=== PATIENT | female | born 1940 | race Caucasian/White ===

== ENCOUNTER → 2016-10-18 | Outpatient (CLI) | payer OTHER ==
[~2016-10-18] MED LIST: ALBUTEROL17 GM INH; ALENDRONATE SOD70 MG PO; ATENOLOL PO; CALCIUM 500 + D1 TAB PO; CARDIZEM CD PO; CARTIA XT240 MG PO; FOSAMAX PO; IBUPROFEN PO; IBUPROFEN800 MG PO; LYSINE500 M1 PO; MACROBID100 M1 PO; NEXIUM PO; ROBITUSSIN100 MG/51 PO; SYNTHROID PO; VIT E PO; VITAMIN C; VITAMIN C500 M1 PO; VITAMIN D31000 UNI1 PO; ZYRTEC-D T1 TAB.SR . PO
--- NOTE | ~2016-10-18 | CT4 ---
[facility] A Service of [facility] & [facility] RADIOLOGY TEXT RESULTS PATIENT: NIKOLAY FIGUEREDO LOCATION: [facility] : 42 UNIT #: [id number] AGE: [address]: Noemi Cain APRN SEX: F ORDER DR: [id number] [facility] [address] [place], [place] [address] [id number] O MR#: [id number] #: [id number] NAME: NIKOLAY FIGUEREDO : 1940 SEX: F STUDY DATE/TIME: 10/18/2016 13:29 [facility]: STUDY DESCRIPTION: CT Abd and Pelv Wo Cont Attending Physician: Noemi Cain A.P.R.N. Referring Physician: Noemi Cain A.P.R.N. Ordering Physician: Noemi Cain A.P.R.N. Primary Care Physician: Noemi Cain A.P.R.N. MEDICAL IMAGING REPORT This report is preliminary unless electronic signature is present EXAM CT abdomen and pelvis without contrast INDICATIONS Bilateral flank pain, left greater than right since 10/16/2016. History of renal calculi. PROCEDURE Unenhanced CT of the abdomen and pelvis The CT exam was performed with one or more of the following radiation dose reduction techniques: automatic exposure control, adjustment of mA and/or kV according to patient size, and iterative reconstruction. COMPARISON 02/20/2016 FINDINGS Abdomen without contrast: Included lung bases are clear. Cardiomegaly. Liver, spleen, adrenal glands, pancreas, gallbladder show no acute abnormality. There is a small amount of sludge or small stones layering dependently in the gallbladder. No evidence for inflammation. Bowel loops are nondilated. There are multiple small bilateral nonobstructing renal calculi, largest on the left measuring approximately 5 mm. The ureters are difficult to follow but there is no definitive ureteral calculus. No hydronephrosis. 1.7 cm lesion in the right mid kidney is unchanged most in keeping with a benign proteinaceous or hemorrhagic cyst. There are a few other cysts in both kidneys. Pelvis without contrast: No radiodense bladder calculus. Previous hysterectomy. No aggressive appearing bone lesion. [facility]. [facility] A Service of [facility] & [facility] RADIOLOGY TEXT RESULTS PATIENT: NIKOLAY FIGUEREDO LOCATION: [facility] : 41 UNIT #: [id number] AGE: [address]: Noemi Cain ATTENUATOR SEX: F ORDER DR: IMPRESSION 1. No definite acute findings. 2. Bilateral nonobstructing renal calculi. Ureters are difficult to follow on this study but there is no definite radiodense ureteral calculus and there is no hydronephrosis. 3. Other incidental findings are detailed above. Findings were called to Noemi Cain at the time of this dictation Dictated by... Sheldon Pickard M.D. THIS IS AN ELECTRONICALLY VERIFIED REPORT Sheldon Pickard M.D. at 10/19/2016 3:56 PM SUKUMAR/susanna TD: 10/18/2016 15:10 JOB #: [id number] MEDICAL IMAGING REPORT Page 1 of 1 COPY
== END | disposition home or self-care (01) ==
LOC: CCAT 12:50
DX: R10.9 Unspecified abdominal pain (principal); R31.9 Hematuria, unspecified; N20.0 Calculus of kidney
CPT/HCPCS: 74176